=== PATIENT | female | born 2000 | race Hispanic/Latino ===

== ENCOUNTER 2023-02-26 20:50 | Inpatient (IN) | payer OTHER ==
[2023-02-27 00:04] VITALS: BMI 23.8
[2023-02-27 00:06] VITALS: BP 105/68
[2023-02-27] MEDS ORDERED: Ondansetron PF 4 MG/2 ML Vial IVP PRN (00:35)
[2023-02-27] MEDS ORDERED: Ondansetron ODT 4 MG TAB PO PRN (00:35)
[2023-02-27] MEDS ORDERED: Acetaminophen 650 MG Suppository PR PRN (00:35)
[2023-02-27] MEDS ORDERED: Sodium Chloride 0.9% 1,000 ML IV SCH (00:45)
[2023-02-27] MEDS ORDERED: Ketorolac Tromethamine 30 MG/ML VIAL IVP SCH (00:45)
[2023-02-27] MEDS: Clindamycin/D5W 600 MG in Premix Bag 1 BAG IVPB SCH ×3 (01:53→13:35)
[2023-02-27] MEDS: Acetaminophen 325 MG TAB PO PRN ×2 (01:55→15:00)
[2023-02-27] MEDS: Sodium Chloride 0.9% 1,000 ML IV SCH ×3 (02:02→21:44)
[2023-02-27] MEDS: Ketorolac Tromethamine 30 MG/ML VIAL IVP SCH ×3 (06:15→18:07)
[2023-02-27] MEDS: Clindamycin 150 MG CAP PO SCH ×2 (14:29→21:44)
[2023-02-27] MEDS ORDERED: Ibuprofen 200 MG TAB PO SCH (18:00)
[2023-02-28] MEDS: Acetaminophen 325 MG TAB PO PRN (02:07)
[2023-02-28] MEDS: Sodium Chloride 0.9% 1,000 ML IV SCH ×2 (02:07→08:03)
[2023-02-28 07:48] VITALS: TEMP 99.8
[2023-02-28] MEDS: Clindamycin 150 MG CAP PO SCH (08:03)
[2023-03-02] MEDS ORDERED: FLU VACC QS2023-24(6MOS UP)/PF 60 MCG/0.5 ML SYRINGE IM ONE (09:00)
== END 2023-02-28 09:00 | disposition home or self-care (01) | DRG 872 ==
LOC: UNDOADMIN 21:59 → SJJU 21:59 → IMCU/EMU 02-27 01:47 → SJJU 02-27 01:47
PROVIDERS: ADMIT Student in an Organized Health Care Education/Training Program; ATTEND Internal Medicine
DX: A41.9 Sepsis, unspecified organism (principal); M41.9 Scoliosis, unspecified; J98.4 Other disorders of lung; K04.7 Periapical abscess without sinus; K00.0 Anodontia; J32.0 Chronic maxillary sinusitis; H70.92 Unspecified mastoiditis, left ear; N26.1 Atrophy of kidney (terminal); K13.0 Diseases of lips; F79 Unspecified intellectual disabilities; Z98.1 Arthrodesis status; Z88.1 Allergy status to other antibiotic agents; Z79.899 Other long term (current) drug therapy; J45.909 Unspecified asthma, uncomplicated
CPT/HCPCS: J1885; J2405; J3490; J7050